=== PATIENT | male | born 1990 | race Caucasian/White ===

== ENCOUNTER 2023-09-13 19:25 | Inpatient (IN) ==
[2023-09-13] MEDS: Lactated Ringers 1000 ml BAG 1,000 ML IV SCH (20:06)
[2023-09-13 20:18] LABS: Hematocrit 32.1 % (38-53); Hemoglobin 10.7 g/dL (13.2-16.3); Mean Corpuscular Hemoglobin 26.6 pg (27-33); Mean Corpuscular Hgb Conc 33.3 g/dL (31-36); Mean Corpuscular Volume 79.7 fL (80-97); Red Blood Count 4.02 10^6/uL (4.06-5.63); Red Cell Distribution Width 14.8 % (12-17); White Blood Count 3.5 10^3/uL (3.6-10.2)
[2023-09-13 20:53] LABS: ABS Lymphocytes 0.5 10^3/uL (1.0-4.8); ABS Monocytes 0.1 10^3/uL (0.0-1.1); ABS Neutrophils 2.8 10^3/uL (1.5-7.6); ABS Nucleated RBC 0.01 10^3/ul; Eosinophil % 0.1 %; Lymphocyte % 14.2 %; Mean Platelet Volume 9.3 fL (7.5-11.2); Nucleated Red Blood Cells % 0.4 %/100WBC (0.0-0.8); Platelet Count 90 10^3/uL (150-450)
[2023-09-13 21:11] LABS: ALT 40 U/L (7-52); Albumin 3.3 g/dL (3.2-5.2); Albumin/Globulin Ratio 0.8 (1-3); Alcohol, S < 13 mg/dL (<13); Alkaline Phosphatase 158 U/L (35-149); Blood Urea Nitrogen 58 mg/dL (6-24); CO2 Carbon Dioxide 24 mmol/L (22-32); Calcium 7.4 mg/dL (8.6-10.3); Chloride 100 mmol/L (101-111); Creatinine, Serum 2.63 mg/dL (0.67-1.17); Globulin 3.9 g/dL (2-4); Glucose 128 mg/dL (70-100); Magnesium 3.5 mg/dL (1.9-2.7); Sodium 136 mmol/L (135-145); Total Bilirubin 3.7 mg/dL (0.2-1.0); Total Protein 7.2 g/dL (6.4-8.9); eGFR CKD-EPI 31.5 (>60)
[2023-09-13 21:13] LABS: Anion Gap 12 mmol/L (2-16); TSH Ultra Thyroid Stim Horm 3.41 mcIU/mL (0.34-5.60)
[2023-09-13 22:31] LABS: Urine Appearance Turbid; Urine Bilirubin 1+ (Negative); Urine Blood 3+ (Negative); Urine Color Yellow; Urine Glucose Negative (Negative); Urine Ketones Negative (Negative); Urine Nitrite Negative (Negative); Urine Protein 2+ (>=100 mg/dL) (Negative); Urine Specific Gravity 1.016 (1.002-1.030); Urine Urobilinogen 3+ (Negative)
[2023-09-13 22:42] LABS: Urine Bacteria Absent /HPF (Absent); Urine Red Blood Cell 1+(3-5/hpf) /HPF (0-Trace); Urine Squamous Epithelial Cell Present /HPF (Absent); Urine White Blood Cell Trace(0-5/hpf) /HPF (0-Trace)
[2023-09-13 22:47] LABS: Urine Benzodiazepine Screen None Detected (None Detect); Urine Cannabinoids Screen None Detected (None Detect); Urine Opiates Screen None Detected (None Detect)
[2023-09-14] MEDS: Lactated Ringers 1000 ml BAG 1,000 ML IV SCH ×3 (02:40→22:36)
[2023-09-14 03:56] LABS: AST Redraw 183 U/L (13-39); Potassium Redraw 5.3 mmol/L (3.5-5.0)
[2023-09-14 04:17] LABS: Hepatitis B Surface Antigen Nonreactive (Nonreactive)
[2023-09-14 04:34] LABS: Hepatitis B Surface Ab Immune (Immune)
[2023-09-14] MEDS ORDERED: Heparin 5000 UNITS/ML 1 mL VIAL SUBCUT SCH ×2 (06:00)
[2023-09-14] MEDS: SODIUM ZIRCONIUM CYCLOSILICATE 10 GM PACKET PO SCH (06:17)
[2023-09-14] MEDS: Heparin 5000 UNITS/ML 1 mL VIAL SUBCUT SCH (06:17)
[2023-09-14 06:57] LABS: Activated Partial Thrombo Time 37.3 seconds (26.0-38.0); INR 1.51 (0.83-1.13)
[2023-09-14 06:58] LABS: Hematocrit 25.5 % (38-53); Hemoglobin 8.9 g/dL (13.2-16.3); Mean Corpuscular Hemoglobin 27.8 pg (27-33); Mean Corpuscular Volume 79.4 fL (80-97); Red Blood Count 3.21 10^6/uL (4.06-5.63); Red Cell Distribution Width 14.9 % (12-17); White Blood Count 2.4 10^3/uL (3.6-10.2)
[2023-09-14] MEDS ORDERED: Vancomycin per Pharmacy 1 EA NOTE FOLLOW UP SCH (07:00)
[2023-09-14 07:53] LABS: HIV 4th Generation Preliminary Reactive (Nonreactive)
[2023-09-14 08:11] LABS: ABS Lymphocytes 0.4 10^3/uL (1.0-4.8); ABS Monocytes 0.1 10^3/uL (0.0-1.1); ABS Neutrophils 1.9 10^3/uL (1.5-7.6); ABS Nucleated RBC 0.01 10^3/ul; Eosinophil % 0.3 %; Large Platelets Present; Lymphocyte % 18.1 %; Mean Platelet Volume 9.3 fL (7.5-11.2); Microcytosis 1+; Nucleated Red Blood Cells % 0.4 %/100WBC (0.0-0.8); Platelet Count 80 10^3/uL (150-450)
[2023-09-14 08:32] LABS: C Reactive Protein 24.94 mg/L (<8.01)
[2023-09-14 08:58] LABS: Folate > 20.00 ng/mL (5.90-24.80)
[2023-09-14 08:59] LABS: Vitamin B12 156 pg/mL (180-914)
[2023-09-14] MEDS ORDERED: cefTRIAXone 1 gm/50 mL D5W 1 GM/50 ML BAG IV SCH (09:00)
[2023-09-14] MEDS: cefTRIAXone 1 gm/50 mL D5W 1 GM/50 ML BAG IV SCH (09:05)
[2023-09-14] MEDS: Vancomycin 1,500 MG in NS 0.9% 250 ml 250 ML IVPB ONE (09:17)
[2023-09-14] MEDS: Vancomycin 1,000 MG in NS 0.9% 250 ml 250 ML IVPB ONE (09:44)
[2023-09-14 09:57] LABS: Hematocrit 24.8 % (38-53); Hemoglobin 8.6 g/dL (13.2-16.3); Mean Corpuscular Hemoglobin 27.8 pg (27-33); Mean Corpuscular Hgb Conc 34.7 g/dL (31-36); Mean Corpuscular Volume 80.1 fL (80-97); Red Cell Distribution Width 14.6 % (12-17); White Blood Count 2.5 10^3/uL (3.6-10.2)
[2023-09-14 09:58] LABS: Mean Platelet Volume 9.6 fL (7.5-11.2); Platelet Count 82 10^3/uL (150-450)
[2023-09-14] MEDS: Acetaminophen IV 1 GM/100ML 1,000 MG/100 ML BAG IV PRN (10:03)
[2023-09-14 10:20] LABS: Calcium 7.2 mg/dL (8.6-10.3); Creatinine, Serum 2.04 mg/dL (0.67-1.17); Phosphorus 3.1 mg/dL (2.5-5.0); Potassium 5.2 mmol/L (3.5-5.0); eGFR CKD-EPI 42.8 (>60)
[2023-09-14 10:22] LABS: ABS Lymphocytes 0.4 10^3/uL (1.0-4.8); ABS Monocytes 0.1 10^3/uL (0.0-1.1); ABS Neutrophils 2.1 10^3/uL (1.5-7.6); ABS Nucleated RBC 0.02 10^3/ul; Eosinophil % 0.1 %; Lymphocyte % 14.2 %; Nucleated Red Blood Cells % 0.6 %/100WBC (0.0-0.8)
[2023-09-14] MEDS: Cyanocobalamin INJ 1,000 MCG/ML VIAL 1 ML VIAL IM SCH (11:03)
[2023-09-14 23:20] LABS: Albumin 2.6 g/dL (3.2-5.2); Albumin/Globulin Ratio 0.8 (1-3); Calcium 7.1 mg/dL (8.6-10.3); Creatinine, Serum 1.95 mg/dL (0.67-1.17); Globulin 3.1 g/dL (2-4); Potassium 4.4 mmol/L (3.5-5.0); Total Bilirubin 1.4 mg/dL (0.2-1.0); Total Protein 5.7 g/dL (6.4-8.9); eGFR CKD-EPI 45.2 (>60)
[2023-09-14 23:26] LABS: Hematocrit 23.9 % (38-53); Hemoglobin 8.1 g/dL (13.2-16.3); Mean Corpuscular Hemoglobin 26.8 pg (27-33); Mean Corpuscular Volume 78.9 fL (80-97); Mean Platelet Volume 9.6 fL (7.5-11.2); Platelet Count 82 10^3/uL (150-450); Red Blood Count 3.03 10^6/uL (4.06-5.63); White Blood Count 1.1 10^3/uL (3.6-10.2)
[2023-09-15 00:04] LABS: ABS Lymphocytes 0.1 10^3/uL (1.0-4.8); ABS Neutrophils 0.9 10^3/uL (1.5-7.6); ABS Nucleated RBC 0.01 10^3/ul; Anisocytosis 1+; Eosinophil % 0.7 %; Lymphocyte % 7.7 %; Microcytosis 1+; Nucleated Red Blood Cells % 0.5 %/100WBC (0.0-0.8)
[2023-09-15] MEDS ORDERED: Zosyn per Pharmacy NOTE FOLLOW UP SCH (04:00)
[2023-09-15] MEDS: Piperacillin/Tazobac 3.375 BAG 3.375 GM/100 ML BAG IV ONE (04:10)
[2023-09-15] MEDS: Azithromycin 500 mg/250 ml NS 500 MG/250 ML BAG IVPB SCH (05:37)
[2023-09-15] MEDS: Lactated Ringers 1000 ml BAG 500 ML IV ONE (05:37)
[2023-09-15] MEDS: Lactated Ringers 1000 ml BAG 1,000 ML IV SCH ×2 (06:38→23:08)
[2023-09-15 07:09] LABS: Creatinine, Serum 1.95 mg/dL (0.67-1.17); Vancomycin Random 9.7 mcg/mL; eGFR CKD-EPI 45.2 (>60)
[2023-09-15] MEDS: ZOSYN 3.375 GM Q8H per EXTENDED INFUSION IV SCH (08:15)
[2023-09-15 08:56] LABS: Hematocrit 23.1 % (38-53); Mean Corpuscular Hemoglobin 27.5 pg (27-33); Mean Corpuscular Hgb Conc 34.6 g/dL (31-36); Mean Corpuscular Volume 79.6 fL (80-97); Red Cell Distribution Width 14.8 % (12-17)
[2023-09-15 09:53] LABS: ABS Lymphocytes 0.1 10^3/uL (1.0-4.8); ABS Neutrophils 0.8 10^3/uL (1.5-7.6); ABS Nucleated RBC 0.01 10^3/ul; Eosinophil % 0.6 %; Lymphocyte % 10.9 %; Mean Platelet Volume 9.3 fL (7.5-11.2); Nucleated Red Blood Cells % 0.9 %/100WBC (0.0-0.8); Platelet Count 82 10^3/uL (150-450); RBC Morphology Normal (Normal)
[2023-09-15 10:02] LABS: ALT 23 U/L (7-52); Albumin 2.3 g/dL (3.2-5.2); Albumin/Globulin Ratio 0.7 (1-3); Alkaline Phosphatase 92 U/L (35-149); Blood Urea Nitrogen 37 mg/dL (6-24); CO2 Carbon Dioxide 26 mmol/L (22-32); Calcium 6.8 mg/dL (8.6-10.3); Chloride 104 mmol/L (101-111); Creatinine, Serum 2.03 mg/dL (0.67-1.17); Globulin 3.1 g/dL (2-4); Glucose 99 mg/dL (70-100); Magnesium 2.7 mg/dL (1.9-2.7); Sodium 138 mmol/L (135-145); Total Bilirubin 1.5 mg/dL (0.2-1.0); Total Protein 5.4 g/dL (6.4-8.9)
[2023-09-15 10:50] LABS: Anion Gap 8 mmol/L (2-16)
[2023-09-15] MEDS: Fluconazole 200 MG IVPREMIX 200 MG/100 ML BAG IVPB SCH (12:48)
[2023-09-15] MEDS ORDERED: Ondansetron 4 mg VIAL 2 MG/ML 2 ml VIAL ONE (12:59)
[2023-09-15] MEDS ORDERED: Lidocaine 1% w EPI 1:100,000 MDV 20 ML VIAL INJ ONE (13:04)
[2023-09-15] MEDS: Ondansetron 4 mg VIAL 2 MG/ML 2 ml VIAL IV ONE (13:06)
[2023-09-15] MEDS ORDERED: Midazolam 2 mg/2 ml VIAL 1 mg/ml 2 ml VIAL (2 mg) ONE (13:14)
[2023-09-15] MEDS: Lidocaine 1% w EPI 1:100,000 MDV 50 ML VIAL INJ ONE (13:20)
[2023-09-15] MEDS ORDERED: Lidocaine 1% w EPI 1:100,000 MDV 20 ML VIAL ONE (13:20)
[2023-09-15] MEDS: Midazolam 2 mg/2 ml VIAL 1 mg/ml 2 ml VIAL (2 mg) IV SLOW PU PRN (13:28)
[2023-09-15 14:31] LABS: Body Fluid Source Cerebral Spinal
[2023-09-15 14:39] LABS: Body Fluid Source Cerebral Spinal; CSF Tube # 4
[2023-09-15 14:52] LABS: CSF Glucose 45 mg/dL (40-70)
[2023-09-15 15:04] LABS: Body Fluid Appearance Cloudy; Body Fluid Color Pink
[2023-09-15 15:05] LABS: Body Fluid Appearance Clear; Body Fluid Color Colorless; CSF Tube # 1
[2023-09-15 15:16] LABS: Body Fluid Total Cells Counted 2
[2023-09-15 15:18] LABS: CSF Body Fluid WBC 2 /mcL
[2023-09-15 15:21] LABS: CSF Body Fluid WBC 19 /mcL
[2023-09-15 15:36] LABS: Body Fluid Mono 14 %; Body Fluid Total Cells Counted 83
[2023-09-15] MEDS ORDERED: Vancomycin per Pharmacy 1 EA NOTE FOLLOW UP PRN (15:49)
[2023-09-15 16:28] LABS: RBC Parasite Smear No Parasites Seen (No Parasite)
[2023-09-15] MEDS: Vancomycin 1,250 MG in NS 0.9% 250 ml 250 ML IVPB ONE (17:27)
[2023-09-15 18:11] LABS: Hematocrit 22.7 % (38-53); Hemoglobin 7.8 g/dL (13.2-16.3); Mean Corpuscular Hemoglobin 27.3 pg (27-33); Mean Corpuscular Hgb Conc 34.3 g/dL (31-36); Mean Corpuscular Volume 79.7 fL (80-97); Mean Platelet Volume 9.4 fL (7.5-11.2); Platelet Count 82 10^3/uL (150-450); Red Blood Count 2.85 10^6/uL (4.06-5.63); Red Cell Distribution Width 15.1 % (12-17); White Blood Count 0.7 10^3/uL (3.6-10.2)
[2023-09-15 18:14] LABS: ABS Neutrophils 0.6 10^3/uL (1.5-7.6)
[2023-09-15 18:20] LABS: INR 1.51 (0.83-1.13)
[2023-09-15 18:46] LABS: Venous Bicarbonate HCO3 25.5 mmol/L (24-28)
[2023-09-15 19:07] LABS: ABS Lymphocytes 0.1 10^3/uL (1.0-4.8); Eosinophil % 0.9 %; Large Platelets Present; Lymphocyte % 10.4 %; Nucleated Red Blood Cells % 0.4 %/100WBC (0.0-0.8); RBC Morphology Normal (Normal)
[2023-09-15 19:11] LABS: Albumin 2.1 g/dL (3.2-5.2); Albumin/Globulin Ratio 0.8 (1-3); Calcium 6.8 mg/dL (8.6-10.3); Creatinine, Serum 1.81 mg/dL (0.67-1.17); Globulin 2.6 g/dL (2-4); Magnesium 2.6 mg/dL (1.9-2.7); Potassium 4.3 mmol/L (3.5-5.0); Total Bilirubin 1.4 mg/dL (0.2-1.0); Total Protein 4.7 g/dL (6.4-8.9); eGFR CKD-EPI 49.4 (>60)
[2023-09-15] MEDS: Norepinephrine 4 MG/250mL D5W 4,000 MCG/250 ML BAG IV SCH (23:11)
[2023-09-15] MEDS: Sulfur Hexaflouride MICROSPHR 25 MG VIAL IV ONE (23:12)
[2023-09-15] MEDS: Vancomycin Random Level NOTE FOLLOW UP ONE (23:46)
[2023-09-16 05:24] LABS: ALT 27 U/L (7-52); Albumin 2.3 g/dL (3.2-5.2); Albumin/Globulin Ratio 0.8 (1-3); Alkaline Phosphatase 121 U/L (35-149); Anion Gap 4 mmol/L (2-16); Blood Urea Nitrogen 35 mg/dL (6-24); CO2 Carbon Dioxide 27 mmol/L (22-32); Calcium 7.1 mg/dL (8.6-10.3); Chloride 107 mmol/L (101-111); Creatinine, Serum 1.93 mg/dL (0.67-1.17); Globulin 2.9 g/dL (2-4); Glucose 81 mg/dL (70-100); Magnesium 2.9 mg/dL (1.9-2.7); Sodium 138 mmol/L (135-145); Total Bilirubin 1.5 mg/dL (0.2-1.0); Total Protein 5.2 g/dL (6.4-8.9); Vancomycin Random 13.4 mcg/mL; eGFR CKD-EPI 45.7 (>60)
[2023-09-16 05:26] LABS: ABS Lymphocytes 0.2 10^3/uL (1.0-4.8); ABS Neutrophils 0.8 10^3/uL (1.5-7.6); Eosinophil % 0.6 %; Hemoglobin 8.7 g/dL (13.2-16.3); Lymphocyte % 21.8 %; Mean Corpuscular Hemoglobin 26.6 pg (27-33); Mean Corpuscular Hgb Conc 33.3 g/dL (31-36); Mean Corpuscular Volume 79.8 fL (80-97); Mean Platelet Volume 8.9 fL (7.5-11.2); Platelet Count 96 10^3/uL (150-450); Red Blood Count 3.26 10^6/uL (4.06-5.63); Red Cell Distribution Width 15.2 % (12-17)
[2023-09-16] MEDS ORDERED: Vancomycin Random Level NOTE FOLLOW UP ONE (06:00)
[2023-09-16 06:42] LABS: Potassium, Whole Blood 4.6 mmol/L (3.4-4.5)
[2023-09-16] MEDS ORDERED: Vancomycin per Pharmacy 1 EA NOTE FOLLOW UP PRN (08:38)
[2023-09-16] MEDS: Vancomycin 1,500 MG in NS 0.9% 250 ml 250 ML IVPB ONE (10:58)
[2023-09-16 13:08] LABS: PCO2 Arterial 30 mmHg (35-45); PO2 Arterial 78 mmHg (80-100)
[2023-09-16 14:35] LABS: HIV-1 Ab Differentiation,P Positive (Negative); HIV-2 Ab Differentiation,P Negative (Negative)
[2023-09-16 22:54] LABS: HIV-1 RNA (PCR) 1630000 copies/mL (Undetected)
[2023-09-16] MEDS: Midazolam 2 mg/2 ml VIAL 1 mg/ml 2 ml VIAL (2 mg) IV SLOW PU PRN (23:00)
[2023-09-16 23:54] LABS: Fungitell Qualitative Result Positive (Negative); Fungitell Quantitative Value 346 pg/mL (<60 pg/mL)
[2023-09-17] MEDS: Gadoteridol (CONTRAST) 279.3 MG/ML 10 ML IV ONE (00:35)
[2023-09-17] MEDS: Vancomycin Random Level NOTE FOLLOW UP ONE (06:11)
[2023-09-17 06:19] LABS: Phosphorus 2.8 mg/dL (2.5-5.0); Potassium 4.8 mmol/L (3.5-5.0)
[2023-09-17 06:21] LABS: Calcium 6.7 mg/dL (8.6-10.3); Creatinine, Serum 1.68 mg/dL (0.67-1.17)
[2023-09-17 06:22] LABS: Albumin 1.9 g/dL (3.2-5.2); Albumin/Globulin Ratio 0.7 (1-3); Globulin 2.8 g/dL (2-4); Magnesium 2.6 mg/dL (1.9-2.7); Total Bilirubin 1.4 mg/dL (0.2-1.0); Total Protein 4.7 g/dL (6.4-8.9)
[2023-09-17 06:28] LABS: Ferritin 1213.9 ng/mL (24-336)
[2023-09-17 06:57] LABS: Eosinophil % 0.2 %; Hematocrit 21.3 % (38-53); Hemoglobin 7.5 g/dL (13.2-16.3); Lymphocyte % 18.4 %; Mean Corpuscular Hemoglobin 27.5 pg (27-33); Mean Corpuscular Hgb Conc 35.1 g/dL (31-36); Mean Corpuscular Volume 78.2 fL (80-97); Mean Platelet Volume 8.7 fL (7.5-11.2); Platelet Count 109 10^3/uL (150-450); Red Blood Count 2.72 10^6/uL (4.06-5.63); Red Cell Distribution Width 15.3 % (12-17); White Blood Count 1.6 10^3/uL (3.6-10.2)
[2023-09-17 06:58] LABS: ABS Lymphocytes 0.3 10^3/uL (1.0-4.8); ABS Neutrophils 1.3 10^3/uL (1.5-7.6); Anisocytosis 1+; Microcytosis 1+
[2023-09-17 08:37] LABS: HIV-1 RNA (PCR) 2730000 copies/mL (Undetected)
[2023-09-17] MEDS ORDERED: Flumazenil 0.5 mg/5 ml 0.1 MG/ML 5 ml VIAL ONE (11:14)
[2023-09-17] MEDS ORDERED: Naloxone 0.4 mg VIAL 0.4 mg/ml 1 ml VIAL ONE (11:14)
[2023-09-17] MEDS ORDERED: Midazolam 5 mg/5 ml VIAL 1 mg/ml 5 ml VIAL (5 mg) ONE (11:14)
[2023-09-17] MEDS ORDERED: fentaNYL 100 mcg/2 ml 50 MCG/ML VIAL ONE (11:14)
[2023-09-17] MEDS: Fluconazole IV 400 MG 200 ML IVPB SCH (12:22)
[2023-09-17] MEDS: Vancomycin 750 MG in NS 0.9% 250 ML IVPB SCH (13:35)
[2023-09-17 15:37] LABS: CSF VDRL Negative (Negative)
[2023-09-17 16:15] LABS: Anaplasma phagocytophilum Negative (Negative); B. miyamotoi PCR, B Negative (Negative); Babesia divergens/MO-1 Negative (Negative); Babesia ducani Negative (Negative); Ehrlichia chaffeensis Negative (Negative); Ehrlichia ewingii/canis Negative (Negative); Ehrlichia muris eauclairensis Negative (Negative)
[2023-09-17 18:06] LABS: Methemoglobin, B 0.4 % (0.0-1.5); Sulfhemoglobin, B 0.1 % (0.0-0.4)
[2023-09-18 00:38] LABS: HSV 1 PCR, CSF Negative (Negative); HSV 2 PCR, CSF Positive (Negative)
[2023-09-18] MEDS ORDERED: Metoprolol Tartrate 5 mg VIAL 5 ml VIAL (1 mg/ml) IV PRN (01:02)
[2023-09-18] MEDS: NS 0.9% IVPB SCH (01:34)
[2023-09-18] MEDS: ACYCLOVIR IVPB SCH (01:34)
[2023-09-18 05:47] LABS: Hematocrit 20.3 % (38-53); Mean Corpuscular Hemoglobin 27.1 pg (27-33); Mean Corpuscular Hgb Conc 34.5 g/dL (31-36); Mean Corpuscular Volume 78.6 fL (80-97); Mean Platelet Volume 8.6 fL (7.5-11.2); Platelet Count 107 10^3/uL (150-450); Red Blood Count 2.59 10^6/uL (4.06-5.63); Red Cell Distribution Width 15.8 % (12-17); White Blood Count 3.4 10^3/uL (3.6-10.2)
[2023-09-18 06:38] LABS: ALT 25 U/L (7-52); Alkaline Phosphatase 262 U/L (35-149); Anion Gap 2 mmol/L (2-16); Blood Urea Nitrogen 24 mg/dL (6-24); CO2 Carbon Dioxide 26 mmol/L (22-32); Calcium 6.6 mg/dL (8.6-10.3); Chloride 107 mmol/L (101-111); Creatinine, Serum 1.49 mg/dL (0.67-1.17); Glucose 102 mg/dL (70-100); Magnesium 2.4 mg/dL (1.9-2.7); Sodium 135 mmol/L (135-145); Total Bilirubin 0.8 mg/dL (0.2-1.0); Total Protein 4.4 g/dL (6.4-8.9); eGFR CKD-EPI 62.4 (>60)
[2023-09-18 06:41] LABS: Albumin 1.8 g/dL (3.2-5.2); Albumin/Globulin Ratio 0.7 (1-3); Globulin 2.6 g/dL (2-4)
[2023-09-18 07:58] LABS: Anisocytosis 2+; Hypochromasia 2+; Microcytosis 3+; Polychromasia 1+
[2023-09-18 07:59] LABS: ABS Lymphocytes 0.5 10^3/uL (1.0-4.8); ABS Monocytes 0.1 10^3/uL (0.0-1.1); ABS Neutrophils 2.8 10^3/uL (1.5-7.6); ABS Nucleated RBC 0.11 10^3/ul; Eosinophil % 0.1 %; Lymphocyte % 13.7 %; Nucleated Red Blood Cells % 3.2 %/100WBC (0.0-0.8)
[2023-09-18] MEDS ORDERED: fentaNYL 100 mcg/2 ml 50 MCG/ML VIAL ONE (12:09)
[2023-09-18] MEDS ORDERED: Naloxone 0.4 mg VIAL 0.4 mg/ml 1 ml VIAL ONE (12:09)
[2023-09-18] MEDS ORDERED: Flumazenil 0.5 mg/5 ml 0.1 MG/ML 5 ml VIAL ONE (12:09)
[2023-09-18] MEDS ORDERED: Midazolam 5 mg/5 ml VIAL 1 mg/ml 5 ml VIAL (5 mg) ONE (12:10)
[2023-09-18 13:42] LABS: QuantiferonTb Gold Plus Result Negative (Negative); TB1 Ag minus Nil Result 0.11 IU/mL; TB2 Ag minus Nil Result 0.14 IU/mL
[2023-09-18 13:50] LABS: Potassium, Whole Blood 4.4 mmol/L (3.4-4.5)
[2023-09-18 14:45] LABS: Toxoplasma Source CSF; Toxoplasma gondii PCR Negative (Negative)
[2023-09-18 19:16] LABS: Adenovirus F40/41 Negative (Negative); Astrovirus Negative (Negative); Cryptosporidium species Negative (Negative); Cyclospora cayetanensis Negative (Negative); Entamoeba histolytica Negative (Negative); Enteroaggregative E.coli(EAEC) Negative (Negative); Enteropathogenic Ecoli(EPEC) Positive (Negative); Enterotoxigenic Ecoli(ETEC) Negative (Negative); Norovirus GI/GII Positive (Negative); Plesiomonas shigelloides Negative (Negative); Salmonella species Negative (Negative); Sapovirus Negative (Negative); Shiga toxin producing E. coli Negative (Negative); Shigella/Enteroinvasive E.coli Negative (Negative); Specimen Source STOOL; Vibrio cholerae Negative (Negative); Yersinia species Negative (Negative)
[2023-09-18 20:28] LABS: % CD3 40 % (58-86); % CD4 1 % (32-64); % CD8 37 % (15-40); Absolute CD45 Count 0.26 thou/mcL (0.82-2.84); CD3 105 cells/mcL (550-2202); CD4 3 cells/mcL (365-1437); CD8 95 cells/mcL (171-846)
[2023-09-18] MEDS ORDERED: Atropine 0.1 MG/ML 10 ml SYR (1 mg) IV PUSH PRN (22:31)
[2023-09-19] MEDS: Benzocaine/Menthol LOZ PO PRN (16:48)
[2023-09-19] MEDS: Sulfamethox/Trimethoprim DS TAB 800/160 mg PO SCH (16:58)
[2023-09-19] MEDS: Vancomycin Trough Check NOTE FOLLOW UP ONE (17:45)
[2023-09-19] MEDS: NS 0.9% 250 ml 250 ML IV SCH (18:18)
[2023-09-19] MEDS: Vancomycin 750 MG in NS 0.9% 250 ML IVPB SCH (18:41)
[2023-09-19 19:57] LABS: Hematocrit 21.2 % (38-53); Hemoglobin 7.5 g/dL (13.2-16.3); Mean Corpuscular Hemoglobin 27.9 pg (27-33); Mean Corpuscular Hgb Conc 35.1 g/dL (31-36); Mean Corpuscular Volume 79.3 fL (80-97); Mean Platelet Volume 8.3 fL (7.5-11.2); Platelet Count 90 10^3/uL (150-450); Red Blood Count 2.68 10^6/uL (4.06-5.63); Red Cell Distribution Width 15.7 % (12-17)
[2023-09-19 20:31] LABS: Anisocytosis 1+
[2023-09-19 20:32] LABS: ABS Lymphocytes 0.7 10^3/uL (1.0-4.8); ABS Monocytes 0.2 10^3/uL (0.0-1.1); ABS Neutrophils 5.1 10^3/uL (1.5-7.6); Eosinophil % 0.1 %; Nucleated Red Blood Cells % 1.6 %/100WBC (0.0-0.8)
[2023-09-19 21:33] LABS: ALT 24 U/L (7-52); Albumin 1.7 g/dL (3.2-5.2); Albumin/Globulin Ratio 0.7 (1-3); Alkaline Phosphatase 233 U/L (35-149); Anion Gap 13 mmol/L (2-16); Blood Urea Nitrogen 17 mg/dL (6-24); CO2 Carbon Dioxide 16 mmol/L (22-32); Calcium 6.5 mg/dL (8.6-10.3); Chloride 104 mmol/L (101-111); Globulin 2.6 g/dL (2-4); Glucose 131 mg/dL (70-100); Magnesium 1.9 mg/dL (1.9-2.7); Sodium 133 mmol/L (135-145); Total Bilirubin 0.6 mg/dL (0.2-1.0); Total Protein 4.3 g/dL (6.4-8.9); eGFR CKD-EPI 80.9 (>60)
[2023-09-19] MEDS: ZOSYN 3.375 GM Q8H per EXTENDED INFUSION IV SCH (22:03)
[2023-09-20 06:43] LABS: Hematocrit 20.6 % (38-53); Hemoglobin 7.2 g/dL (13.2-16.3); Mean Corpuscular Hemoglobin 27.9 pg (27-33); Mean Corpuscular Volume 79.7 fL (80-97); Red Blood Count 2.58 10^6/uL (4.06-5.63); Red Cell Distribution Width 15.6 % (12-17); White Blood Count 5.9 10^3/uL (3.6-10.2)
[2023-09-20 07:21] LABS: ABS Basophils 0.1 10^3/uL (0.0-0.1); ABS Lymphocytes 0.5 10^3/uL (1.0-4.8); ABS Monocytes 0.2 10^3/uL (0.0-1.1); ABS Neutrophils 5.1 10^3/uL (1.5-7.6); ABS Nucleated RBC 0.08 10^3/ul; Eosinophil % 0.1 %; Lymphocyte % 8.3 %; Mean Platelet Volume 8.3 fL (7.5-11.2); Nucleated Red Blood Cells % 1.4 %/100WBC (0.0-0.8); Platelet Count 80 10^3/uL (150-450)
[2023-09-20 08:41] LABS: Albumin 1.7 g/dL (3.2-5.2); Albumin/Globulin Ratio 0.7 (1-3); Calcium 6.5 mg/dL (8.6-10.3); Creatinine, Serum 1.15 mg/dL (0.67-1.17); Globulin 2.6 g/dL (2-4); Total Bilirubin 0.5 mg/dL (0.2-1.0); Total Protein 4.3 g/dL (6.4-8.9); eGFR CKD-EPI 85.1 (>60)
[2023-09-21 06:46] LABS: Hematocrit 21.1 % (38-53); Hemoglobin 7.5 g/dL (13.2-16.3); Mean Corpuscular Hemoglobin 28.4 pg (27-33); Mean Corpuscular Hgb Conc 35.6 g/dL (31-36); Mean Corpuscular Volume 79.8 fL (80-97); Mean Platelet Volume 8.6 fL (7.5-11.2); Platelet Count 74 10^3/uL (150-450); Red Blood Count 2.65 10^6/uL (4.06-5.63); Red Cell Distribution Width 16.1 % (12-17); White Blood Count 6.7 10^3/uL (3.6-10.2)
[2023-09-21 07:44] LABS: Albumin 1.8 g/dL (3.2-5.2); Albumin/Globulin Ratio 0.6 (1-3); Calcium 6.9 mg/dL (8.6-10.3); Creatinine, Serum 1.06 mg/dL (0.67-1.17); Globulin 2.8 g/dL (2-4); Magnesium 1.8 mg/dL (1.9-2.7); Phosphorus 3.5 mg/dL (2.5-5.0); Potassium 4.2 mmol/L (3.5-5.0); Total Bilirubin 0.5 mg/dL (0.2-1.0); Total Protein 4.6 g/dL (6.4-8.9); eGFR CKD-EPI 93.9 (>60)
[2023-09-21 08:02] LABS: ABS Lymphocytes 0.6 10^3/uL (1.0-4.8); ABS Monocytes 0.4 10^3/uL (0.0-1.1); ABS Neutrophils 5.7 10^3/uL (1.5-7.6); ABS Nucleated RBC 0.07 10^3/ul; Eosinophil % 0.1 %; Lymphocyte % 8.9 %
[2023-09-21 08:03] LABS: Anisocytosis 1+
[2023-09-21] MEDS: Vancomycin Trough Check NOTE FOLLOW UP ONE (10:11)
[2023-09-22 08:21] LABS: Hematocrit 21.1 % (38-53); Hemoglobin 7.3 g/dL (13.2-16.3); Mean Corpuscular Hemoglobin 27.5 pg (27-33); Mean Corpuscular Hgb Conc 34.7 g/dL (31-36); Mean Corpuscular Volume 79.1 fL (80-97); Platelet Count 68 10^3/uL (150-450); Red Blood Count 2.67 10^6/uL (4.06-5.63); Red Cell Distribution Width 16.4 % (12-17); White Blood Count 5.4 10^3/uL (3.6-10.2)
[2023-09-22 09:21] LABS: ABS Basophils 0.1 10^3/uL (0.0-0.1); ABS Lymphocytes 0.4 10^3/uL (1.0-4.8); ABS Monocytes 0.3 10^3/uL (0.0-1.1); ABS Neutrophils 4.5 10^3/uL (1.5-7.6); ABS Nucleated RBC 0.03 10^3/ul; Eosinophil % 0.1 %; Lymphocyte % 7.8 %; Microcytosis 1+; Nucleated Red Blood Cells % 0.5 %/100WBC (0.0-0.8)
[2023-09-22 10:36] LABS: Albumin/Globulin Ratio 0.7 (1-3); Calcium 7.2 mg/dL (8.6-10.3); Creatinine, Serum 1.04 mg/dL (0.67-1.17); Globulin 2.8 g/dL (2-4); Magnesium 1.6 mg/dL (1.9-2.7); Phosphorus 3.2 mg/dL (2.5-5.0); Potassium 4.1 mmol/L (3.5-5.0); Total Bilirubin 0.5 mg/dL (0.2-1.0); Total Protein 4.8 g/dL (6.4-8.9)
[2023-09-22] MEDS: Fluconazole SUSP ORALSYR 40 MG/ML PO SCH (11:09)
[2023-09-22] MEDS: Magnesium Sulfate 2 gm BAG 2 GM/50 ML BAG IVPB ONE (15:12)
[2023-09-23 08:08] LABS: Hematocrit 20.4 % (38-53); Hemoglobin 7.2 g/dL (13.2-16.3); Mean Corpuscular Hemoglobin 27.8 pg (27-33); Mean Corpuscular Hgb Conc 35.2 g/dL (31-36); Mean Corpuscular Volume 78.8 fL (80-97); Red Blood Count 2.59 10^6/uL (4.06-5.63); Red Cell Distribution Width 16.2 % (12-17); White Blood Count 4.6 10^3/uL (3.6-10.2)
[2023-09-23 08:50] LABS: Albumin 2.1 g/dL (3.2-5.2); Albumin/Globulin Ratio 0.8 (1-3); Calcium 7.3 mg/dL (8.6-10.3); Creatinine, Serum 1.1 mg/dL (0.67-1.17); Globulin 2.8 g/dL (2-4); Magnesium 1.7 mg/dL (1.9-2.7); Phosphorus 3.8 mg/dL (2.5-5.0); Potassium 4.7 mmol/L (3.5-5.0); Total Bilirubin 0.5 mg/dL (0.2-1.0); Total Protein 4.9 g/dL (6.4-8.9); eGFR CKD-EPI 89.8 (>60)
[2023-09-23 09:00] LABS: Mean Platelet Volume 8.7 fL (7.5-11.2); Platelet Count 87 10^3/uL (150-450)
[2023-09-23 09:08] LABS: ABS Lymphocytes 0.4 10^3/uL (1.0-4.8); ABS Monocytes 0.4 10^3/uL (0.0-1.1); ABS Neutrophils 3.8 10^3/uL (1.5-7.6); ABS Nucleated RBC 0.03 10^3/ul; Anisocytosis 1+; Lymphocyte % 8.7 %; Nucleated Red Blood Cells % 0.6 %/100WBC (0.0-0.8)
[2023-09-23] MEDS: Sulfamethox/Trimethoprim SS TAB 400/80 mg PO SCH (09:37)
[2023-09-23] MEDS: Magnesium Sulfate 2 gm BAG 2 GM/50 ML BAG IVPB ONE (12:49)
[2023-09-24 13:23] LABS: Hemoglobin 6.8 g/dL (13.2-16.3); Mean Corpuscular Hemoglobin 26.9 pg (27-33); Mean Corpuscular Hgb Conc 33.9 g/dL (31-36); Mean Corpuscular Volume 79.2 fL (80-97); Mean Platelet Volume 8.6 fL (7.5-11.2); Platelet Count 121 10^3/uL (150-450); Red Blood Count 2.52 10^6/uL (4.06-5.63); Red Cell Distribution Width 16.2 % (12-17); White Blood Count 4.4 10^3/uL (3.6-10.2)
[2023-09-24 13:58] LABS: Albumin 2.5 g/dL (3.2-5.2); Albumin/Globulin Ratio 0.8 (1-3); Calcium 7.4 mg/dL (8.6-10.3); Creatinine, Serum 0.98 mg/dL (0.67-1.17); Globulin 3.1 g/dL (2-4); Magnesium 1.8 mg/dL (1.9-2.7); Phosphorus 3.7 mg/dL (2.5-5.0); Potassium 4.2 mmol/L (3.5-5.0); Total Bilirubin 0.5 mg/dL (0.2-1.0); Total Protein 5.6 g/dL (6.4-8.9); eGFR CKD-EPI 103.1 (>60)
[2023-09-24 14:10] LABS: ABS Lymphocytes 0.4 10^3/uL (1.0-4.8); ABS Monocytes 0.4 10^3/uL (0.0-1.1); ABS Neutrophils 3.6 10^3/uL (1.5-7.6); ABS Nucleated RBC 0.03 10^3/ul; Eosinophil % 0.1 %; Lymphocyte % 9.4 %; Nucleated Red Blood Cells % 0.7 %/100WBC (0.0-0.8); RBC Morphology Normal (Normal)
[2023-09-24] MEDS: Vancomycin Trough Check NOTE FOLLOW UP ONE (14:25)
[2023-09-24] MEDS: Vancomycin 750 MG in NS 0.9% 250 ML IVPB SCH (14:32)
[2023-09-24] MEDS: Magnesium Sulfate 2 gm BAG 2 GM/50 ML BAG IVPB ONE (20:46)
[2023-09-24 22:55] LABS: Urine Appearance Clear; Urine Bilirubin Negative (Negative); Urine Blood Negative (Negative); Urine Color Colorless; Urine Glucose Negative (Negative); Urine Ketones Negative (Negative); Urine Nitrite Negative (Negative); Urine Protein Negative (Negative); Urine Specific Gravity 1.007 (1.002-1.030); Urine Urobilinogen Negative (Negative); Urine pH 6.5 (5.0-8.0)
[2023-09-24] MEDS: Ondansetron 4 mg VIAL 2 MG/ML 2 ml VIAL IV ONE (23:20)
[2023-09-25 00:49] LABS: Calcium 7.5 mg/dL (8.6-10.3); Creatinine, Serum 1.03 mg/dL (0.67-1.17); Magnesium 2.1 mg/dL (1.9-2.7); Potassium 4.7 mmol/L (3.5-5.0); eGFR CKD-EPI 97.1 (>60)
[2023-09-25 02:12] LABS: Hematocrit 19.5 % (38-53); Hemoglobin 6.7 g/dL (13.2-16.3); Mean Corpuscular Hemoglobin 27.4 pg (27-33); Mean Corpuscular Hgb Conc 34.5 g/dL (31-36); Mean Corpuscular Volume 79.5 fL (80-97); Mean Platelet Volume 8.2 fL (7.5-11.2); Platelet Count 143 10^3/uL (150-450); Red Blood Count 2.45 10^6/uL (4.06-5.63); Red Cell Distribution Width 16.4 % (12-17)
[2023-09-25 03:21] LABS: ABS Lymphocytes 0.5 10^3/uL (1.0-4.8); ABS Monocytes 0.3 10^3/uL (0.0-1.1); ABS Neutrophils 2.2 10^3/uL (1.5-7.6); ABS Nucleated RBC 0.04 10^3/ul; Eosinophil % 0.5 %; Lymphocyte % 15.9 %; Nucleated Red Blood Cells % 1.2 %/100WBC (0.0-0.8)
[2023-09-25] MEDS: Ferric Gluconate IV 125 MG in NS 0.9% 100 ml BAG 100 ML IVPB ONE (13:02)
[2023-09-25 15:41] LABS: Hematocrit 18.1 % (38-53); Hemoglobin 6.3 g/dL (13.2-16.3); Mean Corpuscular Hemoglobin 27.6 pg (27-33); Mean Corpuscular Volume 78.9 fL (80-97); Platelet Count 147 10^3/uL (150-450); Red Blood Count 2.29 10^6/uL (4.06-5.63); Red Cell Distribution Width 16.6 % (12-17); White Blood Count 2.9 10^3/uL (3.6-10.2)
[2023-09-25 15:42] LABS: Albumin 2.4 g/dL (3.2-5.2); Albumin/Globulin Ratio 0.7 (1-3); Calcium 7.8 mg/dL (8.6-10.3); Creatinine, Serum 0.94 mg/dL (0.67-1.17); Globulin 3.4 g/dL (2-4); Potassium 4.5 mmol/L (3.5-5.0); Total Bilirubin 0.4 mg/dL (0.2-1.0); Total Protein 5.8 g/dL (6.4-8.9); eGFR CKD-EPI 108.4 (>60)
[2023-09-25 16:12] LABS: ABS Lymphocytes 0.4 10^3/uL (1.0-4.8); ABS Monocytes 0.3 10^3/uL (0.0-1.1); ABS Neutrophils 2.1 10^3/uL (1.5-7.6); ABS Nucleated RBC 0.01 10^3/ul; Eosinophil % 1.3 %; Lymphocyte % 13.2 %; Nucleated Red Blood Cells % 0.3 %/100WBC (0.0-0.8)
[2023-09-26] MEDS: NS 0.9% 250 ml 250 ML IV SCH (09:46)
[2023-09-26 15:18] LABS: ABS Lymphocytes 0.3 10^3/uL (1.0-4.8); ABS Monocytes 0.3 10^3/uL (0.0-1.1); ABS Neutrophils 3.3 10^3/uL (1.5-7.6); ABS Nucleated RBC 0.01 10^3/ul; Eosinophil % 1.1 %; Hematocrit 20.2 % (38-53); Hemoglobin 6.9 g/dL (13.2-16.3); Mean Corpuscular Hgb Conc 34.1 g/dL (31-36); Mean Corpuscular Volume 79.3 fL (80-97); Mean Platelet Volume 7.7 fL (7.5-11.2); Nucleated Red Blood Cells % 0.2 %/100WBC (0.0-0.8); Platelet Count 220 10^3/uL (150-450); Red Blood Count 2.55 10^6/uL (4.06-5.63); Red Cell Distribution Width 16.9 % (12-17)
[2023-09-26 15:34] LABS: Calcium 7.9 mg/dL (8.6-10.3); Magnesium 1.5 mg/dL (1.9-2.7); Potassium 4.5 mmol/L (3.5-5.0); eGFR CKD-EPI 100.7 (>60)
[2023-09-26] MEDS: Magnesium Sulfate 2 gm BAG 2 GM/50 ML BAG IVPB ONE (16:24)
[2023-09-27] MEDS ORDERED: Calcium Carb (TUMS) 500 mg CHEW TAB PO PRN (00:28)
[2023-09-27] MEDS ORDERED: Lidocaine 4% TOPICAL 50 ML TOP.SOLN TOPICAL PRN ×2 (00:31→00:50)
[2023-09-27] MEDS: Enoxaparin 40 MG/0.4 ML SYR SUBCUT SCH (09:33)
[2023-09-27] MEDS: Vancomycin Trough Check NOTE FOLLOW UP ONE (17:46)
[2023-09-29 10:24] LABS: ABS Lymphocytes 0.1 10^3/uL (1.0-4.8); ABS Monocytes 0.2 10^3/uL (0.0-1.1); ABS Nucleated RBC 0.01 10^3/ul; Eosinophil % 0.8 %; Hematocrit 20.2 % (38-53); Hemoglobin 7.2 g/dL (13.2-16.3); Lymphocyte % 4.3 %; Mean Corpuscular Hemoglobin 28.4 pg (27-33); Mean Corpuscular Hgb Conc 35.4 g/dL (31-36); Mean Platelet Volume 7.1 fL (7.5-11.2); Nucleated Red Blood Cells % 0.4 %/100WBC (0.0-0.8); Platelet Count 285 10^3/uL (150-450); Red Blood Count 2.53 10^6/uL (4.06-5.63); Red Cell Distribution Width 17.1 % (12-17); White Blood Count 2.4 10^3/uL (3.6-10.2)
[2023-09-29 11:03] LABS: Albumin/Globulin Ratio 0.9 (1-3); C Reactive Protein 8.99 mg/L (<8.01); Calcium 8.1 mg/dL (8.6-10.3); Creatinine, Serum 1.25 mg/dL (0.67-1.17); Globulin 3.5 g/dL (2-4); Potassium 4.2 mmol/L (3.5-5.0); Total Bilirubin 0.4 mg/dL (0.2-1.0); Total Protein 6.5 g/dL (6.4-8.9)
[2023-09-29 11:34] LABS: Atazanavir & Ritonavir SUSC; Bictegravir SUSC; Cabotegravir SUSC; Darunavir & Ritonavir SUSC; Dolutegravir SUSC; Doravirine SUSC; Elvitegravir SUSC; Fosamprenavir & Ritonavir SUSC; HIV RNA level copies/mL<30days 1630000; HIV-1 Genotype Drug Resistance INTERP; HIV-1 group M subtype B; Indinavir & Ritonavir SUSC; Lopinavir & Ritonavir SUSC; Raltegravir SUSC; Saquinavir & Ritonavir SUSC; Tipranavir & Ritonavir SUSC
[2023-09-29 17:17] LABS: Urine Appearance Clear; Urine Bilirubin Negative (Negative); Urine Blood Negative (Negative); Urine Color Light-Yellow; Urine Glucose Negative (Negative); Urine Ketones Negative (Negative); Urine Nitrite Negative (Negative); Urine Protein Negative (Negative); Urine Specific Gravity 1.012 (1.002-1.030); Urine Urobilinogen Negative (Negative); Urine pH 5.5 (5.0-8.0)
[2023-09-30 16:22] LABS: Hematocrit 20.1 % (38-53); Hemoglobin 7.2 g/dL (13.2-16.3); Mean Corpuscular Hemoglobin 28.7 pg (27-33); Mean Corpuscular Hgb Conc 35.7 g/dL (31-36); Mean Corpuscular Volume 80.5 fL (80-97); Mean Platelet Volume 7.1 fL (7.5-11.2); Platelet Count 239 10^3/uL (150-450); Red Cell Distribution Width 17.9 % (12-17); White Blood Count 1.8 10^3/uL (3.6-10.2)
[2023-09-30 16:39] LABS: Calcium 8.1 mg/dL (8.6-10.3); Creatinine, Serum 1.4 mg/dL (0.67-1.17); Magnesium 1.5 mg/dL (1.9-2.7); Potassium 4.2 mmol/L (3.5-5.0); eGFR CKD-EPI 67.2 (>60)
[2023-09-30 18:27] LABS: ABS Lymphocytes 0.1 10^3/uL (1.0-4.8); ABS Monocytes 0.1 10^3/uL (0.0-1.1); ABS Neutrophils 1.5 10^3/uL (1.5-7.6); Eosinophil % 1.2 %; Lymphocyte % 5.3 %; Nucleated Red Blood Cells % 0.3 %/100WBC (0.0-0.8)
[2023-09-30] MEDS: Sulfamethox/Trimethoprim DS TAB 800/160 mg PO SCH (21:16)
[2023-10-01] MEDS: Sulfamethox/Trimethoprim DS TAB 800/160 mg PO SCH (09:40)
[2023-10-01 11:46] LABS: Toxoplasma IgG Antibody Negative (Negative); Toxoplasma IgG Antibody Index <3 IU/mL
[2023-10-01 15:42] LABS: Fungitell Qualitative Result Positive (Negative); Fungitell Quantitative Value 137 pg/mL (<60 pg/mL)
[2023-10-03] MEDS ORDERED: AMPHOTERICIN B IVPB SCH (14:00)
[2023-10-03] MEDS: AMPHOTERICIN B LIPOSOME IVPB SCH (16:26)
[2023-10-03] MEDS: D5W IVPB SCH (16:26)
[2023-10-03] MEDS: Lidocaine 1% MPF 5 ML VIAL INJ ONE (17:33)
[2023-10-03] MEDS: Lactated Ringers 1000 ml BAG 1,000 ML IV ONE (18:55)
[2023-10-03 19:13] LABS: Hematocrit 20.5 % (38-53); Hemoglobin 7.2 g/dL (13.2-16.3); Mean Corpuscular Hemoglobin 27.9 pg (27-33); Mean Corpuscular Hgb Conc 35.2 g/dL (31-36); Mean Corpuscular Volume 79.3 fL (80-97); Mean Platelet Volume 7.9 fL (7.5-11.2); Platelet Count 149 10^3/uL (150-450); Red Blood Count 2.59 10^6/uL (4.06-5.63); Red Cell Distribution Width 18.1 % (12-17); White Blood Count 3.6 10^3/uL (3.6-10.2)
[2023-10-03] MEDS: AMPHOTERICIN B LIPOSOME IVPB ONE (19:24)
[2023-10-03] MEDS: D5W IVPB ONE (19:24)
[2023-10-03 19:40] LABS: Albumin 3.2 g/dL (3.2-5.2); Albumin/Globulin Ratio 0.8 (1-3); Calcium 9.4 mg/dL (8.6-10.3); Creatinine, Serum 1.46 mg/dL (0.67-1.17); Globulin 3.8 g/dL (2-4); Potassium 5.9 mmol/L (3.5-5.0); Total Bilirubin 0.4 mg/dL (0.2-1.0); eGFR CKD-EPI 63.9 (>60)
[2023-10-03] MEDS: Saline FLUSH-CENTRAL 10 ML SYRINGE CENT\\PICC SCH ×2 (21:44→21:53)
[2023-10-04 11:00] LABS: Hematocrit 19.1 % (38-53); Hemoglobin 6.5 g/dL (13.2-16.3); Mean Corpuscular Hemoglobin 26.6 pg (27-33); Mean Corpuscular Hgb Conc 33.8 g/dL (31-36); Mean Corpuscular Volume 78.6 fL (80-97); Red Blood Count 2.43 10^6/uL (4.06-5.63); Red Cell Distribution Width 17.6 % (12-17)
[2023-10-04 11:06] LABS: Albumin 2.8 g/dL (3.2-5.2); Albumin/Globulin Ratio 0.8 (1-3); Calcium 8.6 mg/dL (8.6-10.3); Creatinine, Serum 2.04 mg/dL (0.67-1.17); Globulin 3.6 g/dL (2-4); Magnesium 1.1 mg/dL (1.9-2.7); Phosphorus 2.2 mg/dL (2.5-5.0); Potassium 5.1 mmol/L (3.5-5.0); Total Bilirubin 0.5 mg/dL (0.2-1.0); Total Protein 6.4 g/dL (6.4-8.9); eGFR CKD-EPI 42.8 (>60)
[2023-10-04 11:48] LABS: Anisocytosis 1+; Basophilic Stippling 1+; Large Platelets Present; Macrocytosis 1+; Microcytosis 1+
[2023-10-04 11:50] LABS: Mean Platelet Volume 8.4 fL (7.5-11.2); Platelet Count 105 10^3/uL (150-450); White Blood Count 3.6 10^3/uL (3.6-10.2)
[2023-10-04 11:51] LABS: ABS Lymphocytes 1.1 10^3/ul (1.0-4.8); ABS Monocytes 0.3 10^3/ul (0.0-1.1); ABS Neutrophils 2.3 10^3/ul (1.5-7.6)
[2023-10-04] MEDS: Magnesium Sulfate 2 gm BAG 2 GM/50 ML BAG IVPB ONE (13:38)
[2023-10-04] MEDS: NS 0.9% 500 ml BAG 500 ML IV SCH (14:49)
[2023-10-04] MEDS: AMPHOTERICIN B LIPOSOME IVPB SCH (14:53)
[2023-10-04] MEDS: D5W IVPB SCH (14:53)
[2023-10-04 18:17] LABS: Osmolality Serum 286 mOsm/kg (275-295)
[2023-10-04] MEDS: Magnesium Sulfate IV 1GM/100ML 1 GM/100 ML BAG IV ONE (20:37)
[2023-10-05 09:14] LABS: Hematocrit 22.2 % (38-53); Mean Corpuscular Hemoglobin 28.7 pg (27-33); Mean Corpuscular Volume 79.9 fL (80-97); Mean Platelet Volume 8.3 fL (7.5-11.2); Platelet Count 87 10^3/uL (150-450); Red Blood Count 2.78 10^6/uL (4.06-5.63); Red Cell Distribution Width 17.8 % (12-17); White Blood Count 6.1 10^3/uL (3.6-10.2)
[2023-10-05 09:18] LABS: Calcium 9.1 mg/dL (8.6-10.3); Creatinine, Serum 1.22 mg/dL (0.67-1.17); Magnesium 2.1 mg/dL (1.9-2.7); Potassium 5.5 mmol/L (3.5-5.0); eGFR CKD-EPI 79.3 (>60)
[2023-10-05 10:16] LABS: ABS Lymphocytes 2.2 10^3/ul (1.0-4.8); ABS Monocytes 0.2 10^3/ul (0.0-1.1); ABS Neutrophils 3.7 10^3/ul (1.5-7.6); Anisocytosis 1+; Microcytosis 1+
[2023-10-05 10:21] LABS: Urine Osmo 511 mOsm/kg (150-1150)
[2023-10-05 13:17] LABS: Potassium 5.6 mmol/L (3.5-5.0)
[2023-10-05 13:19] LABS: Calcium 8.6 mg/dL (8.6-10.3); Creatinine, Serum 1.44 mg/dL (0.67-1.17)
[2023-10-05 13:20] LABS: Hemoglobin 7.1 g/dL (13.2-16.3); Red Blood Count 2.53 10^6/uL (4.06-5.63); White Blood Count 5.5 10^3/uL (3.6-10.2)
[2023-10-05 13:21] LABS: Hematocrit 20.2 % (38-53); Mean Corpuscular Hemoglobin 28.2 pg (27-33); Mean Corpuscular Hgb Conc 35.4 g/dL (31-36); Mean Corpuscular Volume 79.8 fL (80-97); Mean Platelet Volume 8.4 fL (7.5-11.2); Platelet Count 87 10^3/uL (150-450); Red Cell Distribution Width 18.1 % (12-17)
[2023-10-05 13:23] LABS: Anisocytosis 1+; Microcytosis 1+
[2023-10-05 13:25] LABS: ABS Monocytes 0.3 10^3/uL (0.0-1.1); ABS Neutrophils 2.2 10^3/uL (1.5-7.6); ABS Nucleated RBC 0.04 10^3/ul; Eosinophil % 0.3 %; Lymphocyte % 53.8 %; Nucleated Red Blood Cells % 0.8 %/100WBC (0.0-0.8)
[2023-10-06 06:20] LABS: Hematocrit 21.5 % (38-53); Hemoglobin 7.6 g/dL (13.2-16.3); Mean Corpuscular Hemoglobin 28.7 pg (27-33); Mean Corpuscular Hgb Conc 35.2 g/dL (31-36); Mean Corpuscular Volume 81.7 fL (80-97); Mean Platelet Volume 8.7 fL (7.5-11.2); Platelet Count 66 10^3/uL (150-450); Red Blood Count 2.63 10^6/uL (4.06-5.63); White Blood Count 5.2 10^3/uL (3.6-10.2)
[2023-10-06 06:21] LABS: Calcium 8.2 mg/dL (8.6-10.3); Creatinine, Serum 1.09 mg/dL (0.67-1.17); Magnesium 1.9 mg/dL (1.9-2.7); Potassium 5.7 mmol/L (3.5-5.0); eGFR CKD-EPI 90.8 (>60)
[2023-10-06] MEDS: Magnesium Sulfate 2 gm BAG 2 GM/50 ML BAG IVPB ONE (09:22)
[2023-10-06 12:25] LABS: Hematocrit 21.6 % (38-53); Hemoglobin 7.7 g/dL (13.2-16.3); Mean Corpuscular Hemoglobin 28.7 pg (27-33); Mean Corpuscular Hgb Conc 35.5 g/dL (31-36); Mean Corpuscular Volume 80.8 fL (80-97); Mean Platelet Volume 9.6 fL (7.5-11.2); Platelet Count 69 10^3/uL (150-450); Red Blood Count 2.67 10^6/uL (4.06-5.63); Red Cell Distribution Width 18.1 % (12-17); White Blood Count 5.2 10^3/uL (3.6-10.2)
[2023-10-06 12:50] LABS: ABS Lymphocytes 2.6 10^3/uL (1.0-4.8); ABS Monocytes 0.4 10^3/uL (0.0-1.1); ABS Neutrophils 2.2 10^3/uL (1.5-7.6); ABS Nucleated RBC 0.02 10^3/ul; Anisocytosis 1+; Eosinophil % 0.2 %; Lymphocyte % 49.7 %; Microcytosis 1+; Nucleated Red Blood Cells % 0.4 %/100WBC (0.0-0.8)
[2023-10-06] MEDS: SODIUM ZIRCONIUM CYCLOSILICATE 10 GM PACKET PO ONE (17:38)
[2023-10-07 07:19] LABS: Hematocrit 21.1 % (38-53); Hemoglobin 7.4 g/dL (13.2-16.3); Mean Corpuscular Hemoglobin 28.8 pg (27-33); Mean Corpuscular Hgb Conc 35.1 g/dL (31-36); Mean Corpuscular Volume 81.9 fL (80-97); Mean Platelet Volume 8.7 fL (7.5-11.2); Platelet Count 46 10^3/uL (150-450); Red Blood Count 2.57 10^6/uL (4.06-5.63); Red Cell Distribution Width 18.4 % (12-17); White Blood Count 4.5 10^3/uL (3.6-10.2)
[2023-10-07 08:02] LABS: Calcium 8.1 mg/dL (8.6-10.3); Creatinine, Serum 0.85 mg/dL (0.67-1.17); Magnesium 1.7 mg/dL (1.9-2.7); Potassium 4.5 mmol/L (3.5-5.0); eGFR CKD-EPI 116.2 (>60)
[2023-10-08 06:52] LABS: Creatinine, Serum 0.85 mg/dL (0.67-1.17); Magnesium 1.6 mg/dL (1.9-2.7); Potassium 4.1 mmol/L (3.5-5.0); eGFR CKD-EPI 116.2 (>60)
[2023-10-08 07:22] LABS: Hematocrit 21.6 % (38-53); Hemoglobin 7.5 g/dL (13.2-16.3); Mean Corpuscular Hemoglobin 28.6 pg (27-33); Mean Corpuscular Hgb Conc 34.9 g/dL (31-36); Mean Corpuscular Volume 81.9 fL (80-97); Mean Platelet Volume 9.7 fL (7.5-11.2); Platelet Count 56 10^3/uL (150-450); Red Blood Count 2.63 10^6/uL (4.06-5.63); Red Cell Distribution Width 18.3 % (12-17)
[2023-10-08] MEDS: Magnesium Sulf 4 GM/100 ML IV 4,000 MG/100 ML BAG IVPB ONE (09:34)
[2023-10-08] MEDS: ITRACONAZOLE 100 MG PO SCH (14:36)
[2023-10-08] MEDS: AMPHOTERICIN B LIPOSOME IVPB ONE (15:06)
[2023-10-08] MEDS: D5W IVPB ONE (15:06)
[2023-10-09 07:00] LABS: Hematocrit 20.9 % (38-53); Hemoglobin 7.3 g/dL (13.2-16.3); Mean Corpuscular Hemoglobin 28.8 pg (27-33); Mean Corpuscular Hgb Conc 34.9 g/dL (31-36); Mean Corpuscular Volume 82.5 fL (80-97); Mean Platelet Volume 9.1 fL (7.5-11.2); Platelet Count 82 10^3/uL (150-450); Red Blood Count 2.53 10^6/uL (4.06-5.63); Red Cell Distribution Width 18.4 % (12-17)
[2023-10-09] MEDS ORDERED: Magnesium Sulf 4 GM/100 ML IV 4,000 MG/100 ML BAG IVPB ONE (07:10)
[2023-10-09 07:11] LABS: Calcium 7.9 mg/dL (8.6-10.3); Creatinine, Serum 0.92 mg/dL (0.67-1.17); Potassium 4.1 mmol/L (3.5-5.0); eGFR CKD-EPI 111.3 (>60)
[2023-10-09 09:21] VITALS: BP 111/67
== END 2023-10-09 13:35 | disposition home or self-care (01) | DRG 890 ==
LOC: ED 19:25 → EDHOLD 19:25 → SUATTDRO 23:31 → ICU 09-15 15:18 → SUATTDRO 09-15 18:16 → MED 09-21 17:07
PROVIDERS: ADMIT Internal Medicine; ATTEND Student in an Organized Health Care Education/Training Program